=== PATIENT | male | born 1995 | race American Indian/Alaskan Native ===

== ENCOUNTER 2017-06-30 08:42 | Outpatient (CLI) | payer MEDICAID ==
[2017-06-30 09:09] LABS: Basophils % (Auto) 0.5 % (0.0-1.8); Eosinophils # (Auto) 0.1 K/mm3 (0.0-0.4); Eosinophils % (Auto) 1.9 % (0.0-4.3); Hematocrit 46.5 % (35.5-45.6); Lymphocytes # (Auto) 1.8 K/mm3 (1.2-5.4); Lymphocytes % (Auto) 31.5 % (13.4-35.0); Mean Corpuscular HGB Conc 35 % (32-34); Mean Corpuscular Hemoglobin 28 pg (28-32); Mean Corpuscular Volume 82 fl (84-94); Monocytes # (Auto) 0.4 K/mm3 (0.0-0.8); Monocytes % (Auto) 7.3 % (0.0-7.3); Platelet Count 217 K/mm3 (140-440); Red Blood Count 5.67 M/mm3 (3.65-5.03); Red Cell Distribution Width 13.4 % (13.2-15.2)
[2017-06-30 09:29] LABS: Alanine Aminotransferase 20 units/L (7-56); Albumin 4.4 g/dL (3.9-5); BUN/Creatinine Ratio 9; Blood Urea Nitrogen 8 mg/dL (9-20); Calcium 9.3 mg/dL (8.4-10.2); Chol/HDL Ratio 3.37 %; HDL Cholesterol 45 mg/dL (40-59); Hemolysis Index 3
[2017-06-30 09:36] LABS: Free T4 (Free Thyroxine) 1.09 ng/dL (0.76-1.46)
[2017-06-30 09:37] LABS: LDL Cholesterol,Direct 91.45 mg/dL (50-130)
== END 2017-06-30 08:43 | disposition home or self-care (01) ==
LOC: LAB 08:42
PROVIDERS: ATTEND Psychiatry & Neurology Psychiatry
DX: F31.2 Bipolar disorder, current episode manic severe with psychotic features (principal); F90.1 Attention-deficit hyperactivity disorder, predominantly hyperactive type; F12.10 Cannabis abuse, uncomplicated; F71 Moderate intellectual disabilities; J45.909 Unspecified asthma, uncomplicated; Z79.899 Other long term (current) drug therapy
CPT/HCPCS: 36415; 80053; 80061; 80156; 80164; 83036; 84146; 84439; 84443; 85025

== ENCOUNTER 2017-10-19 13:16 | Emergency (ER) | payer MEDICAID ==
[2017-10-19 13:31] VITALS: BP 119/81
--- NOTE | 2017-10-19 14:27 | Emergency Department Report ---
ED Back Pain/Injury HPI - General Chief Complaint: Back Pain/Injury Stated Complaint: BACK PAIN Time Seen by Provider: 10/19/17 14:23 Source: patient Limitations: No Limitations - History of Present Illness Initial Comments: 22-year-old male past medical history complaining of lower back pain status post fall 3 days ago. Complaint: back pain Onset/Timin -: days(s) Place: street Severity: moderate Severity scale (0 -10): 5 Quality: aching Improves With: immobilization Worsens With: none - Related Data Home Medications Medication Instructions Recorded Confirmed Last Taken Dextroamphetamine/Amphetamine 15 mg PO QDAY 08/22/14 08/22/14 Unknown [Adderall XR 15 mg] Previous Rx's Medication Instructions Recorded Last Taken Type ALBUTEROL Inhaler [ProAir HFA 2 puff IH QID PRN #1 inhalation 06/27/14 Unknown Rx Inhaler] Azithromycin [Zithromax Z-LASHAWN] 250 mg PO DAILY #6 tablet 06/27/14 Unknown Rx Fluticasone Propionate [Flovent 100 mcg IH QDAY #1 disk.w.dev 06/27/14 Unknown Rx Diskus] Prednisone [Prednisone 10 mg 10 mg PO .TAPER #1 tab.ds.pk 06/27/14 Unknown Rx (6-Day Pack, 21 Tabs)] Divalproex Sodium [Depakote] 125 mg PO DAILY #30 tablet.dr 08/22/14 Unknown Rx carBAMazepine [TEGretol] 200 mg PO Q12HR #60 tablet 08/22/14 Unknown Rx lamoTRIgine [LaMICtal] 150 mg PO QDAY #30 tablet 08/22/14 Unknown Rx risperiDONE [RisperDAL] 1 mg PO QHS #30 tablet 08/22/14 Unknown Rx HYDROcodone/ACETAMINOPHEN [[place] 1 each PO Q8H PRN #7 tablet 10/19/17 Unknown Rx 5-325 Tablet] Ibuprofen [Motrin] 600 mg PO Q8H PRN #20 tablet 10/19/17 Unknown Rx Allergies Allergy/AdvReac Type Severity Reaction Status Date / Time No Known Allergies Allergy Unverified 06/27/14 13:48 ED Review of Systems ROS: Stated complaint: BACK PAIN Other details as noted in HPI Constitutional: denies: chills, fever Eyes: denies: eye pain, eye discharge, vision change ENT: denies: ear pain, throat pain Respiratory: denies: cough, shortness of breath, wheezing Cardiovascular: denies: chest pain, palpitations Endocrine: no symptoms reported Gastrointestinal: denies: abdominal pain, nausea, diarrhea Genitourinary: denies: urgency, dysuria Musculoskeletal: denies: back pain, joint swelling, arthralgia Skin: denies: rash, lesions Neurological: denies: headache, weakness, paresthesias Psychiatric: denies: anxiety, depression Hematological/Lymphatic: denies: easy bleeding, easy bruising ED Past Medical Hx - Past Medical History Hx Seizures: Yes Hx Asthma: Yes Additional medical history: ADHD - Surgical History Past Surgical History?: No - Social History Smoking Status: Never Smoker Substance Use Type: None - Medications Home Medications: Home Medications Medication Instructions Recorded Confirmed Last Taken Type ALBUTEROL Inhaler [ProAir HFA 2 puff IH QID PRN #1 inhalation 06/27/14 Unknown Rx Inhaler] Azithromycin [Zithromax Z-LASHAWN] 250 mg PO DAILY #6 tablet 06/27/14 Unknown Rx Fluticasone Propionate [Flovent 100 mcg IH QDAY #1 disk.w.dev 06/27/14 Unknown Rx Diskus] Prednisone [Prednisone 10 mg 10 mg PO .TAPER #1 tab.ds.pk 06/27/14 Unknown Rx (6-Day Pack, 21 Tabs)] Dextroamphetamine/Amphetamine 15 mg PO QDAY 08/22/14 08/22/14 Unknown History [Adderall XR 15 mg] Divalproex Sodium [Depakote] 125 mg PO DAILY #30 tablet.dr 08/22/14 Unknown Rx carBAMazepine [TEGretol] 200 mg PO Q12HR #60 tablet 08/22/14 Unknown Rx lamoTRIgine [LaMICtal] 150 mg PO QDAY #30 tablet 08/22/14 Unknown Rx risperiDONE [RisperDAL] 1 mg PO QHS #30 tablet 08/22/14 Unknown Rx HYDROcodone/ACETAMINOPHEN [[place] 1 each PO Q8H PRN #7 tablet 10/19/17 Unknown Rx 5-325 Tablet] Ibuprofen [Motrin] 600 mg PO Q8H PRN #20 tablet 10/19/17 Unknown Rx ED Physical Exam - General Limitations: No Limitations General appearance: alert, in no apparent distress - Head Head exam: Present: atraumatic, normocephalic - Eye Eye exam: Present: normal appearance - ENT ENT exam: Present: mucous membranes moist - Neck Neck exam: Present: normal inspection - Respiratory Respiratory exam: Present: normal lung sounds bilaterally. Absent: respiratory distress - Cardiovascular Cardiovascular Exam: Present: regular rate, normal rhythm. Absent: systolic murmur, diastolic murmur, rubs, gallop - GI/Abdominal GI/Abdominal exam: Present: soft, normal bowel sounds - Rectal Rectal exam: Present: deferred - Extremities Exam Extremities exam: Present: normal inspection - Back Exam Back exam: Present: normal inspection - Neurological Exam Neurological exam: Present: alert, oriented X3 - Psychiatric Psychiatric exam: Present: normal affect, normal mood - Skin Skin exam: Present: warm, dry, intact, normal color. Absent: rash ED Course Vital Signs 10/19/17 13:28 Temperature 98.9 F Pulse Rate 93 H Respiratory 16 Rate Blood Pressure 119/81 O2 Sat by Pulse 96 Oximetry ED Medical Decision Making - Medical Decision Making A/P: Musculoskeletal pain, lower back contusion 1-Motrin when necessary, short course [place] when necessary 2-f/u with primary care doctor 3- 4- Critical care attestation.: If time is entered above; I have spent that time in minutes in the direct care of this critically ill patient, excluding procedure time. ED Disposition Clinical Impression: Lower back pain Qualifiers: Chronicity: acute Back pain laterality: unspecified Sciatica presence: without sciatica Qualified Code(s): M54.5 - Low back pain Disposition: - TO HOME OR SELFCARE Is pt being admited?: No Does the pt Need Aspirin: No Condition: Stable Instructions: Back Pain (ED), Acute Low Back Pain (ED) Prescriptions: HYDROcodone/ACETAMINOPHEN [[place] 5-325 Tablet] 1 each PO Q8H PRN #7 tablet PRN Reason: Pain , Severe (7-10) Ibuprofen [Motrin] 600 mg PO Q8H PRN #20 tablet PRN Reason: Pain Referrals: [facility] [Provider Group] - 3-5 Days NORMAN LINDSEY MD [Staff Physician] - 3-5 Days Forms: Accompanied Note, Work/School Release Form(ED) Time of Disposition: 15:46
[2017-10-19] MEDS: NORCO 5/325 PO ONE (14:56)
--- NOTE | 2017-10-19 15:41 | XRay Report ---
LUMBAR SPINE RADIOGRAPHS INDICATION: Low back pain, status post fall few days ago. COMPARISON: None similar. FINDINGS: AP and lateral lumbar spine radiographs suggest slight dextrocurvature apex about L1-L2, possibly positional versus scoliosis. Otherwise normal vertebral body stature and disc heights. Intact SI joints. Nonobstructive bowel gas pattern. CONCLUSION: No acute radiographic abnormality, as described. Thank you for the opportunity to participate in this patient's care.
== END 2017-10-19 15:55 | disposition home or self-care (01) ==
LOC: ED 13:16
DX: S30.0XXA Contusion of lower back and pelvis, initial encounter (principal); J45.909 Unspecified asthma, uncomplicated; W18.30XA Fall on same level, unspecified, initial encounter; Y93.89 Activity, other specified; Y92.89 Other specified places as the place of occurrence of the external cause; Y99.8 Other external cause status
CPT/HCPCS: 72100

== ENCOUNTER 2020-12-25 19:01 | Emergency (ER) | payer SELFPAY ==
[2020-12-25 19:28] VITALS: BP 123/66
[2020-12-25] MEDS ORDERED: METOCLOPRAMIDE 10 MG/2 ML INJ ONE (19:29)
[2020-12-25] MEDS ORDERED: diphenhydrAMINE 50 MG/ML VIAL ONE (19:30)
[2020-12-25] MEDS ORDERED: KETOROLAC 30 MG/1 ML INJ ONE (19:30)
[2020-12-25] MEDS ORDERED: KETOROLAC 30 MG/1 ML INJ IV ONE (19:36)
[2020-12-25] MEDS ORDERED: diphenhydrAMINE 50 MG/ML VIAL IV ONE (19:36)
[2020-12-25] MEDS ORDERED: METOCLOPRAMIDE 10 MG TAB PO ONE (19:36)
[2020-12-25] MEDS ORDERED: METOCLOPRAMIDE 10 MG/2 ML INJ IV ONE (19:42)
--- NOTE | 2020-12-25 20:25 | Emergency Department Report ---
ED Headache HPI - General Chief Complaint: Headache Stated Complaint: MIGRAINE Time Seen by Provider: 12/25/20 19:42 Source: patient Exam Limitations: no limitations - History of Present Illness Timing/Duration: 1 week Quality: mild, moderate Head Injury Location: parietal Recent Head Trauma: frequent headaches, chronic headaches Associated Symptoms: denies symptoms. denies: facial pain, fever/chills, nasal congestion, nasal drainage, stiff neck, vision changes, weakness Allergies/Adverse Reactions: Allergies No Known Allergies Allergy (Unverified 06/27/14 13:48) Home Medications: Ambulatory Orders Albuterol Mdi (or & Nicu Only) [ProAir HFA Inhaler] 2 puff IH QID PRN #1 inhalation 06/27/14 Azithromycin [Zithromax Z-LASHAWN] 250 mg PO DAILY #6 tablet 06/27/14 Fluticasone Propionate [Flovent Diskus] 100 mcg IH QDAY #1 disk.w.dev 06/27/14 Prednisone [Prednisone 10 mg (6-Day Pack, 21 Tabs)] 10 mg PO .TAPER #1 tab.ds.pk 06/27/14 Dextroamphetamine/Amphetamine [Adderall XR 15 mg] 15 mg PO QDAY 08/22/14 Divalproex Sodium [Depakote] 125 mg PO DAILY #30 tablet. 08/22/14 carBAMazepine [TEGretol] 200 mg PO Q12HR #60 tablet 08/22/14 lamoTRIgine [LaMICtal] 150 mg PO QDAY #30 tablet 08/22/14 risperiDONE [RisperDAL] 1 mg PO QHS #30 tablet 08/22/14 HYDROcodone/ACETAMINOPHEN [[place] 5-325 Tablet] 1 each PO Q8H PRN #7 tablet 10/19/17 Ibuprofen [Motrin] 600 mg PO Q8H PRN #20 tablet 10/19/17 Butalb/Acetamin/Caff 50-325-40 [Fioricet 50-325-40] 1 tab PO Q6HR PRN #20 tab 12/25/20 ED Review of Systems ROS: Stated complaint: MIGRAINE Other details as noted in HPI Comment: All other systems reviewed and negative ED Past Medical Hx - Past Medical History Previous Medical History?: Yes Hx Seizures: Yes Hx Asthma: Yes Additional medical history: ADHD - Surgical History Past Surgical History?: No - Social History Smoking Status: Never Smoker Substance Use Type: None - Medications Home Medications: Home Medications Medication Instructions Recorded Confirmed Last Taken Type Albuterol Mdi (or & Nicu Only) 2 puff IH QID PRN #1 inhalation 06/27/14 Unknown Rx [ProAir HFA Inhaler] Azithromycin [Zithromax Z-LASHAWN] 250 mg PO DAILY #6 tablet 06/27/14 Unknown Rx Fluticasone Propionate [Flovent 100 mcg IH QDAY #1 disk.w.dev 06/27/14 Unknown Rx Diskus] Prednisone [Prednisone 10 mg 10 mg PO .TAPER #1 tab.ds.pk 06/27/14 Unknown Rx (6-Day Pack, 21 Tabs)] Dextroamphetamine/Amphetamine 15 mg PO QDAY 08/22/14 08/22/14 Unknown History [Adderall XR 15 mg] Divalproex Sodium [Depakote] 125 mg PO DAILY #30 tablet.dr 08/22/14 Unknown Rx carBAMazepine [TEGretol] 200 mg PO Q12HR #60 tablet 08/22/14 Unknown Rx lamoTRIgine [LaMICtal] 150 mg PO QDAY #30 tablet 08/22/14 Unknown Rx risperiDONE [RisperDAL] 1 mg PO QHS #30 tablet 08/22/14 Unknown Rx HYDROcodone/ACETAMINOPHEN [[place] 1 each PO Q8H PRN #7 tablet 10/19/17 Unknown Rx 5-325 Tablet] Ibuprofen [Motrin] 600 mg PO Q8H PRN #20 tablet 10/19/17 Unknown Rx Butalb/Acetamin/Caff 50-325-40 1 tab PO Q6HR PRN #20 tab 12/25/20 Unknown Rx [Fioricet 50-325-40] ED Physical Exam - General Limitations: No Limitations General appearance: alert, in no apparent distress - Head Head exam: Present: atraumatic, normocephalic - Eye Eye exam: Present: normal appearance, PERRL, EOMI, other. Absent: scleral icterus, conjunctival injection, nystagmus Pupils: Present: normal accommodation - ENT ENT exam: Present: normal exam, mucous membranes moist - Neck Neck exam: Present: normal inspection, full ROM - Respiratory Respiratory exam: Present: normal lung sounds bilaterally. Absent: respiratory distress - Cardiovascular Cardiovascular Exam: Present: regular rate, normal rhythm. Absent: systolic m urmur, diastolic murmur, rubs, gallop - GI/Abdominal GI/Abdominal exam: Present: soft, normal bowel sounds - Rectal Rectal exam: Present: deferred - Extremities Exam Extremities exam: Present: normal inspection - Back Exam Back exam: Present: normal inspection. Absent: CVA tenderness (R), CVA tenderness (L) - Neurological Exam Neurological exam: Present: alert, oriented X3, CN II-XII intact, normal gait - Expanded Neurological Exam Expanded Neurological exam: Absent: innattentive Patient oriented to: Present: person, place, time Speech: Present: fluid speech Cerebellar function: Finger to Nose: Normal Best Eye Response (Rosie): (4) open spontaneously Best Motor Response (Rosie): (6) obeys commands Best Verbal Response ([place]): (5) oriented Rosie Total: 15 - Psychiatric Psychiatric exam: Present: normal affect, normal mood. Absent: anxious, flat affect - Skin Skin exam: Present: warm, dry, intact, normal color. Absent: rash ED Course Vital Signs 12/25/20 19:27 Temperature 97.9 F Pulse Rate 79 Respiratory 13 Rate Blood Pressure 123/66 O2 Sat by Pulse 100 Oximetry ED Medical Decision Making - Medical Decision Making This patient presents with a headache most consistent with his typical migraine. Differential diagnosis includes migraine versus tension type headache. No headache red flags. Neurologic exam without evidence of meningismus, focal neurologic findings.Based on the patient's history and physical there is very low clinical suspicion for significant intracranial pathology. The headache was NOT sudden onset, NOT maximal at onset, there are NO neurologic findings, the patient does NOT have a fever, the patient does NOT have any jaw claudication, the patient does NOT endorse a clotting disorder, patient DENIES any trauma or eye pain and the headache is NOT associated with dizziness or ataxia. Presentation not consistent with acute intracranial bleed to include SAH (lack of risk factors, headache history). Presentation not consistent with acute [employer] infection to include meningitis or brain abscess, Temporal arteritis unlikely, as is acute angle closure glaucoma given history and physical findings. Presentation not consistent with other acute, emergent causes of headache at this time. Plan to treat symptomatically with pain medication. No indication for imaging/LP at this time. Plan: pain medication, , serial reassessment Critical care attestation.: If time is entered above; I have spent that time in minutes in the direct care of this critically ill patient, excluding procedure time. ED Disposition Clinical Impression: Chronic migraine Disposition: 01 HOME / SELF CARE / HOMELESS Is pt being admited?: No Does the pt Need Aspirin: No Condition: Stable Instructions: Recurrent Migraine Headache, Recurrent Migraine Headache, [id number], Migraine Headache Prescriptions: Butalb/Acetamin/Caff 50-325-40 [Fioricet 50-325-40] 1 tab PO Q6HR PRN #20 tab PRN Reason: Headache Referrals: POLY FORBES MD [Staff Physician] - 3-5 Days
== END 2020-12-25 20:08 | disposition home or self-care (01) ==
LOC: ED 19:01
DX: G43.909 Migraine, unspecified, not intractable, without status migrainosus (principal); R56.9 Unspecified convulsions; J45.909 Unspecified asthma, uncomplicated; F90.9 Attention-deficit hyperactivity disorder, unspecified type
CPT/HCPCS: 96374; 96375; 99282; J1200; J1885; J2765